=== PATIENT | female | born 1930 | race Caucasian/White ===

== ENCOUNTER 2016-07-12 11:14 | Inpatient (IN) | payer OTHER, MEDICAID ==
[~2016-07-12] VITALS: Ht 157.5 cm; Wt 55.4 kg
--- NOTE | 2016-07-12 11:52 | NUR ---
PT WHEELCHAIRED TO LOBBY BY FAMILY. PT A&O, BREATHING E/U. PT AWAITING ROOM
--- NOTE | 2016-07-12 12:41 | NUR ---
MSE COMPLETED BY DR. SARAVIA
--- NOTE | 2016-07-12 12:45 | NUR ---
PT MOVED FROM HALLWAY 1 TO BED 12
--- NOTE | 2016-07-12 12:50 | NUR ---
EKG IN PROGRESS AND LAB AT BEDSIDE FOR BLOOD DRAW
--- NOTE | 2016-07-12 12:57 | NUR ---
PT BIB FAMILY MEMBER FOR C/O RIGHT HIP PAIN AND RIGHT HAND PAIN S/P MECHANICAL TRIP AND FALL TO RIGHT SIDE FROM TRIPPLING ON [place] APPROX 1030 THIS AM, PT AND PTS FAMILY MEMBER DENIES LOC AFTER FALL, PT REPORTS 10/10 PAIN WHEN MOVING RIGHT LEG, +SHORTENING NOTED, +PSC TO EXT BUT DECREASED MOVEMENT TO RIGHT LEG, PT ABLE TO MOVE RIGHT FOOT WITH NO PROBLEMS, PT AAOX4, NO NEURO DEFICITS, TAMAZIGHT SPEAKING, RESP EVEN AND UNLABORED, IN NO ACUTE DISTRESS, CALL LIGHT WITHIN REACH, WILL CONTINUE TO MONITOR
[2016-07-12 13:12] LABS: CALCIUM 8.6 mg/dL (8.5-10.1); CARBON DIOXIDE 27.6 mmol/L (21-32); CHLORIDE SERUM 98 mmol/L (98-107); CREATININE SERUM 0.5 mg/dL (0.6-1.0); GLUCOSE SERUM 141 mg/dL (74-106); POTASSIUM SERUM 4.1 mmol/L (3.5-5.1); SODIUM SERUM 134 mmol/L (136-145)
[2016-07-12 13:14] LABS: PLATELET COUNT 212 x10^3mcL (130-400); RED CELL DISTRIBUTION WIDTH 14.2 % (11.5-14.5)
[2016-07-12 13:20] LABS: BASOPHIL % 0 % (0-2)
--- NOTE | 2016-07-12 13:20 | NUR ---
PT REPORTS SHE WANTS TO WAIT UNTIL SHE NEEDS TO MOVE AROUND IN THE GURNEY TO RECEIVE IV PAIN MEDICATIONS. PT DENIES HAVING PAIN AT THIS TIME STATING SHE HAS NO PAIN WHEN SHE IS STAYING STILL
--- NOTE | 2016-07-12 13:36 | NUR ---
PT AND FAMILY EDUCATED ON THE NEED FOR HIP SX FOR FRACTURED HIP. PT AND FAM AWARE OF POSSIBLE COMPLICATIONS POST SX.
--- NOTE | 2016-07-12 13:56 | NUR ---
PT RESTING IN BED, NO SIGNS OF DISTRESS PT DECLINES PAIN AT THIS TIME
[2016-07-12] MEDS ORDERED: CALCIUM500 M1 PO (14:04)
[2016-07-12] MEDS ORDERED: MULTI-VIT WITH50 ML PO (14:04)
--- NOTE | 2016-07-12 14:12 | NUR ---
[facility] SWAB COLLECTED AND SENT TO LAB, MED REC COMPLETED
--- NOTE | 2016-07-12 14:32 | NUR ---
REPORT GIVEN TO DIXIE JREONIMO TELE FLOOR TO ASSUME CARE OF PT
--- NOTE | 2016-07-12 14:37 | NUR ---
PT CHANGED TO HOSPITAL GOWN WITH NO PROBLEMS, OFFERED PT ONCE AGAIN IF SHE WOULD LIKE ANYTHING FOR PAIN HERE BEFORE TRANSPORT WITH INSTRUCTION THAT THERE WILL BE BRIEF DISCOMFORT UPON TRANSPORTATION FROM ED GURNEY TO TELE FLOOR BED, PT STILL REFUSING TO TAKE ANYTHING FOR PAIN AT THIS TIME
[2016-07-12 14:49] LABS: ALBUMIN 3.7 g/dL (3.4-5.0); BILIRUBIN DIRECT 0.16 mg/dL (0.0-0.2); BILIRUBIN TOTAL 0.5 mg/dL (0.20-1.00); TOTAL PROTEIN, SERUM 7.3 g/dL (6.4-8.2)
[2016-07-12 14:50] LABS: CHOLESTEROL/HDL RATIO 2.4
[2016-07-12 14:56] LABS: T3 TOTAL 1.45 ng/mL
[2016-07-12 15:00] LABS: FREE T4 1.12 ng/dL (0.76-1.46); FREE THYROXINE INDEX 3.3 ug/dL (1.4-4.5); T4(THYROXINE) 10.2 ug/dL (4.7-13.3)
--- NOTE | 2016-07-12 15:00 | NUR ---
PT ON THE FLOOR, PT ORIENTED TO ROOM, CALL LIGHT IN REACH, FAMILY AT BEDSIDE. TELE 3 NSR.
--- NOTE | 2016-07-12 15:36 | NUR ---
PT RESTINGING IN BED NO C/O PAIN
[2016-07-12 15:55] VITALS: BP 142/52
--- NOTE | 2016-07-12 16:45 | NUR ---
PT RESTING IN BED NO C/O PAIN, FAMILY AT BEDSIDE. CALL LIGHT IN REACH.
--- NOTE | 2016-07-12 17:27 | NUR ---
PT RESTING IN BED NO SIGNS OF DISTRESS CALL LIGHT IN REACH WILL CONTINUE TO MONITOR.
[2016-07-12 18:10] VITALS: BP 138/61
--- NOTE | 2016-07-12 18:42 | NUR ---
DR BURNETT IN TO SEE PT.
--- NOTE | 2016-07-12 19:35 | NUR ---
RECEIVED Pt AAOX4 CALM AND COOPERATIVE WITH CARE. DENIES ANY CHEST PAIN. LUNG SOUNDS ARE CTA BILATERALLY. Pt IS ON ROOM AIR, NO RESP DISTRESS NOTED. ACTIVE BOWEL SOUNDS X4 QUADS, DENIES ANY N/V/D. GAO CATH IN PLACE. DRAINING YELLOW URINE TO GRAVITY. IV SITE TO RFA IS PATENT. SKIN IS INTACT. RIGHT HIP WITH BUCKS TRACTION IN PLACE. REPORTS MILD ACHING PAIN TO RIGHT HIP AT 3/10 WHICH WORSENS WITH MOVEMENT. RADIAL AND PEDAL PULSES ARE PRESENT. NO EDEMA NOTED . Pt AWARE OF SCHEDULE SURGERY, SIGNED CONSENT. AWARE AND UNDERSTANDS THE REASON WHY SHE MUST REMAIN NPO AFTER MIDNIGHT. NEPHEW (KAN AND BI) PRESENT AND AWARE OF POC. VERIFIED WITH PATIENT AND NEPHEW (KAN) THAT THE PATIENT MAKES HER OWN DECISIONS IN REGARDS TO HER CARE, Pt AGREES. FAMILY MEMBER, BI WILL STAY AT BEDSIDE. Pt AND FAMILY RE-ORIENTED TO ROOM AND POC. CALL LIGHT WITHIN REACH. WILL CONTINUE TO MONITOR.
[2016-07-12 21:29] VITALS: BP 133/59
--- NOTE | 2016-07-12 22:08 | NUR ---
MEDICATED WITH NORCO FOR RIGHT HIP PAIN AT 5/10. WILL CONTINUE TO MONITOR.
--- NOTE | 2016-07-12 23:31 | NUR ---
I HAVE REVIEWED THE DATA COLLECTION BY PANDA (NAME):ARON CAMPBELL ENTERED ON (DATE/TIME):07/12/16 7406 I CONCUR WITH THE DATA AND ANY EXCEPTIONS OR COMMENTS ARE LISTED BELOW:
--- NOTE | 2016-07-13 01:26 | NUR ---
AWARE OF THE NEED TO REMOVE BUCKS TRACTION, TRAPEZE AND Pt TO BE TRANSFERRED TO FROM BED TO CT SCANNER FOR CT OF HEAD ORDERED. CT SCAN WILL BE CANCELED AT THIS TIME. LIONEL IN CT DEPT AWARE.
--- NOTE | 2016-07-13 03:17 | NUR ---
Pt RESTING COMFORTABLY. CALL LIGHT WITHIN REACH. WILL CONTINUE TO MONITOR.
[2016-07-13 03:43] LABS: UA SPECIFIC GRAVITY 1.025 (1.005-1.035); microscopic required? YES; urine erythrocyte 1+ (NEGATIVE)
--- NOTE | 2016-07-13 05:17 | NUR ---
NO SIGNIFICANT CHANGES NOTED OVER NIGHT. Pt MEDICATED X1 TIME FOR PAIN TO RIGHT HIP WITH NORCO AND RESTORIL FOR INSOMNIA. GAO CATH WITH 450 ML OF YELLOW URINE. Pt REMAINS NPO. IV SITE PATENT. FAMILY AT BEDSIDE. SAFETY AND COMFORT MEASURES REMAIN IN PLACE. WILL CONTINUE TO MONITOR.
[2016-07-13 06:20] VITALS: BP 119/40
[2016-07-13 06:38] LABS: BASOPHIL % 0.3 % (0-2); PLATELET COUNT 166 x10^3mcL (130-400); RED CELL DISTRIBUTION WIDTH 13.9 % (11.5-14.5)
[2016-07-13 06:56] LABS: CALCIUM 7.7 mg/dL (8.5-10.1); CARBON DIOXIDE 26.4 mmol/L (21-32); CHLORIDE SERUM 105 mmol/L (98-107); CREATININE SERUM 0.4 mg/dL (0.6-1.0); GLUCOSE SERUM 86 mg/dL (74-106); MAGNESIUM 1.9 mg/dL (1.8-2.4); PHOSPHOROUS 2.9 mg/dL (2.5-4.9); POTASSIUM SERUM 3.8 mmol/L (3.5-5.1); SODIUM SERUM 136 mmol/L (136-145)
--- NOTE | 2016-07-13 08:04 | NUR ---
cancellation requested for echocardiogram
--- NOTE | 2016-07-13 09:22 | NUR ---
PT RESTING IN BED, AWAKE ALERT AND ORIENTED X4, ABLE TO MAKE NEEDS KNOWN. TELE 3. GREENLANDIC SPEAKING. PULSES EQUAL BILATERAL NO EDEMA NOTED. PT ABLE TO WIGGLE BILATERAL TOES. NO C/O PAIN AT THIS TIME. PT RESTING COMFORTABLE ON RA. BOWEL TONES ACTIVE. GAO CATHETER INPLACE. BUCKS TRACTION TO RIGHT LEG 7LBS. SKIN IS CDI. IV TO THE RFA. PT CALM AND COOPERATIVE WITH CARE.
--- NOTE | 2016-07-13 11:08 | NUR ---
PT RESTING IN BED, FAMILY AT BEDSIDE. PT DENIES PAIN AT THIS TIME. CALL LIGHT IN REACH WILL CONTINUE TO MONITOR.
--- NOTE | 2016-07-13 12:15 | NUR ---
PT OFF THE FLOOR IN PROCEDURE, PTS FAMILY MEMEBERS ACCOMPANIED PT DOWN TO OR. PTS AGNES TOOK DENTURES WITH HER TO OR WAITING ROOM.
--- NOTE | 2016-07-13 15:30 | NUR ---
REPORT RECIEVED FROM GUILLERMINA FROM OR.
--- NOTE | 2016-07-13 17:46 | NUR ---
PT RESTIGN IN BED NO SIGNS OF DISTRESS, CALL LIGHT IN REACH, NO C/O PAIN AT THIS TIME, REPOSITIONED PT FOR COMFORT. FAMILY AT BEDSIDE WILL CONTINUE TO MONITOR.
--- NOTE | 2016-07-13 19:40 | NUR ---
RECEIVED Pt AAOX3 CALM AND COOPERATIVE WITH CARE. DENIES ANY CHEST PAIN. LUNG SOUNDS ARE CTA BILATERALLY. Pt IS ON ROOM AIR. NO RESP DISTRESS NOTED. ACTIVE BOWEL SOUNDS X4 QUADS. DENIES ANY ABD PAIN, N/V/D. IV SITE TO RFA IS PATENT. GAO CATH IN PLACE WITH YELLOW URINE. DRESSING TO RIGHT HIP IN PLACE CDI. DENIES ANY PAIN AT THIS TIME. RADIAL AND PEDAL PULSES ARE PRESENT. NO EDEMA NOTED TO EXTREMITITIES. SCD'S IN PLACE. RE-ORIENTED TO ROOM AND CALL LIGHT SYSTEM WITHIN EASY REACH. WILL CONTINUE TO MONITOR.
--- NOTE | 2016-07-13 20:00 | NUR ---
I HAVE REVIEWED THE DATA COLLECTION BY PANDA (NAME):ARON CAMPBELL ENTERED ON (DATE/TIME):07/13/161939 I CONCUR WITH THE DATA AND ANY EXCEPTIONS OR COMMENTS ARE LISTED BELOW:
[2016-07-13 21:34] VITALS: BP 100/43
--- NOTE | 2016-07-13 23:13 | NUR ---
Pt DENIES ANY PAIN AT THIS TIME. CALL LIGHT WITHIN REACH. WILL CONTINUE TO MONITOR.
--- NOTE | 2016-07-14 04:13 | NUR ---
Pt RESTING COMFORTABLY. NO S/S PAIN NOTED. WILL CONTINUE TO MONITOR.
--- NOTE | 2016-07-14 05:07 | NUR ---
NO SIGNIFICANT CHANGES NOTED OVER NIGHT. NO C/O PAIN TO RIGHT HIP REPORTED. PEDAL PULSES AND CAP REFILLS ARE PRESENT TO BLE, DENIES ANY NUMBNESS OR TINGLING. GAO CATH WITH 250 ML OF ERICA URINE NOTED. NO BM NOTED. IV SITE REMAINS PATENT. SAFETY AND COMFORT MEASURES REMAIN IN PLACE. WILL CONTINUE TO MONITOR.
[2016-07-14 05:40] VITALS: BP 101/40
[2016-07-14 05:48] LABS: BASOPHIL % 0.2 % (0-2); PLATELET COUNT 134 x10^3mcL (130-400)
[2016-07-14 05:49] LABS: CALCIUM 7.6 mg/dL (8.5-10.1); CARBON DIOXIDE 26.2 mmol/L (21-32); CHLORIDE SERUM 105 mmol/L (98-107); CREATININE SERUM 0.4 mg/dL (0.6-1.0); GLUCOSE SERUM 118 mg/dL (74-106); MAGNESIUM 1.8 mg/dL (1.8-2.4); PHOSPHOROUS 2.5 mg/dL (2.5-4.9); POTASSIUM SERUM 4.4 mmol/L (3.5-5.1); SODIUM SERUM 137 mmol/L (136-145)
--- NOTE | 2016-07-14 08:30 | NUR ---
PATIENT ALERT AND ORIENTED X4, BREATHING UNLABORED, NO SIGNS OF DISTRESS. PT LYING IN BED WATCHING TV VS WNL. NO COMPLAINTS OF PAIN AT THIS TIME, WILL CONTINUE TO MONITOR.
[2016-07-14 10:56] VITALS: BP 109/43
--- NOTE | 2016-07-14 11:29 | NUR ---
PAIN MEDICATION WAS GIVEN AND PT WITH PATIENT. NO SIGNS OF DISTRESS BREATHING UNLABORED.
--- NOTE | 2016-07-14 14:06 | NUR ---
PATIENT LYING IN BED, NO COMPLAINTS OF PAIN. BREATHIJNG UNLABORED, NO SIGNS OF DISTRESS. WILL CONTINUE TO MONITOR.
--- NOTE | 2016-07-14 14:09 | NUR ---
PATIENT SITTING IN BED NO COMPLAINTS OF PAIN AT THIS TIME, WILL CONTINUE TO MONITOR.
--- NOTE | 2016-07-14 14:48 | NUR ---
P.T. NOTES AM/INITIAL EVAL [id number] Pt WAS ADMITTED DUE TO FALL AT HOME, (R)ANGULATED IT HIP FX, 07/13/16 (R)HIP ORIF; 07/13/16 CT HEAD(-), XR (R)WRIST:POSSIBLE MID SCAPHOID FX; Pt LIVES IN 1-DOMINICK HOUSE W/ NEPHEW (WORKS DAYTIME) & IHZBG-LD-PUF (WORKS NIGHT TIME), HAS 1 STEP TO FRONT ENTRY; AMBULATORY WITHOUT ASST DEVICE; DOES NOT DRIVE, HOMEMAKER, NO CHILDREN. S: Pt WAS SEEN AWAKE & ALERT IN BED, SPEAKS MALAY, ABLE TO FOLLOW SIMPLE COMMANDS W/ TACTILE & GESTURE CUES, CYRACOM PHONE AVAILABLE, PREFERS NIECE (BI) TO TRANSLATE AT THIS TIME; NIECE IN ROOM; ORIENTED x3, AGREEABLE & COOPERATIVE W/ P.T.; DEMO (R)HIP PAIN (P.S.9/10)(HARRINGTON HAYES PAIN SCALE), PRE MEDICATED, NO C/O DIZZINESS AT THIS TIME;APPREHENSIVE. O:BED MOBILITY: MAX ASSIST+2 PERSONS IN SUPINE TO SIT TRANSFERS: MAX/MOD ASSIST+2 PERSONS IN SIT TO STAND W/ FWW, CHAIR TRANSFERS GAIT: MOD ASSIST+2 PERSONS W/ FWW X 12 FT, (R)LE FWB UNABLE TO AMBU FARTHER DUE TO WEAKNESS, PAIN, FATIGUE; AGREED TO SIT UP IN RECL CHAIR AT BEDSIDE; ON ROOM AIR; CALL HARRIS, PHONE TABLE IN REACH; APPRECIATIVE; NURSE AWARE; NIECE IN ROOM. A:Pt DEMO GOOD RESPONSE TO P.T. SESSION; FALL RISK, POST OP; SLOW IN TASK FACILITATION; Pt EDUC ON SAFE GAIT, WB, HEP, USE OF CALL LIGHT FOR NURSE ASSIST, DEMO UNDERSTANDING, GOOD FOLLOW THRU; ANTALGIC GAIT; TENDS TO HOP W/ (L)LE DUE TO PAIN; JN=083/47, 123/37; HR=77, 80; O2 SAT ROOM AIR=98% P:CONT PT TWICE DAILY 5X/WK, ONCE DAILY 1X/WK X 1 WK; POC & DX DISCUSSED W/ COMMERCIAL TITLE EXAMINER; WILL BENEFIT W/ P.T. AFTER ACUTE STAY. EVAL38,2PA GCODES:[id number] TUG SCORE:19 sec [id number] Pt WAS GIVEN THERA EXER UE/LE ELLIS. EX8
--- NOTE | 2016-07-14 14:53 | NUR ---
PT NOTES TIME [id number] S: CLEARED BY RN FOR P.T. TX. PATIENT IS AWAKE & ALERT SITTING UP IN A RECLINER CHAIR BY BEDSIDE. AGREEABLE TO P.T. TX. C/O PAIN ON R HIP 07/07. RN AWARE. O: VS AT REST BP 111/31, HR 82 BPM, SPO2 ON RA 100% BED MOBILITY: SIT>SUPINE W/ MAX ASSIST OF 2. TRANSFER: SIT<>STAND W/ MAX/MOD ASSIST OF 2. GAIT: 2 STEPS W/ FWW MOD/MAX ASSIST OF 2. R LE FWB. PATIENT PREFERS NWB ON R LE DURING GAIT DUE TO PAIN. PATIENT HAS ANTALGIC STANCE. DECREASE GAIT VELOCITY. GAIT DISTANCE LIMITED D/T R HIP PAIN & WEAKNESS. EDUCATED PATIENT ON THE IMPORTANCE OF THERAPY, R LE FWB, & SAFETY FOR FALL PREVENTION W/ G UNDERSTANDING. COOPERATIVE & APPRECIATIVE OF CARE. THER EX KNEE FLEX/EXT, HIP FLEXION, GLUTEAL SETS, ANKLE DF/PF ELLIS. PATIENT IS SAFELY & COMFORTABLY IN A SEMI US POSITION IN BED W/ CALL BUTTON & TABLE IN REACH. BED ALARM ON. VS AFTER TX BP 106/59, HR 77 BPM, SPO2 ON RA 100%. RN NOTIFIED. P: DISCUSSED W/ PRIMARY PHYSICAL THERAPIST TA17',TE8',2PA(2)
--- NOTE | 2016-07-14 15:10 | NUR ---
CALLED DR HARRINGTON TOP NOTIFY OG LOW BP 98/37 MAP 56 AND HGB 8.1 AND HCT 25. PATIENT FEELING WEAK AND SLEEPY. PER DOCTOR LEN TO GIVE BOLUS AND RECHECK BP ON RIGHT ARM. WILL UPDATE WITH NEW BP.
--- NOTE | 2016-07-14 15:15 | NUR ---
SPOKE WITH DR HARRINGTON. WAS GIVEN ORDERS TO CHARISSE PT AND SAID HE WILL ORDER CBC IN 4 HOURS. INFORMED OF BP OF 101/43 MAP 63.
--- NOTE | 2016-07-14 16:20 | NUR ---
DR BUI IN TO ASSESS PATIENT AT THIS TIME. DR BUI MADE AWARE OF HGB 8.1, INFORMED HIM OF DR HARRINGTON'S ORDER TO HEP LOCK PATIENT AND ORDER CBC AT 1900. NO NEW ORDERS AT THIS TIME. DRESSING TO RIGHT HIM STILL INTACT WITH NO STRIKE THROUGH NOTED. INFORMED DR BUI PATIENT WAS UNABLE TO AMBULATE WITH PHYSICAL THERAPY DUE TO LOW BP. WILL CONTINUE TO MONITOR.
[2016-07-14 17:41] VITALS: BP 103/55
--- NOTE | 2016-07-14 17:50 | NUR ---
DISCONTINUED IV ON RIGHT AC DUE TO INFILTRATION. STARTED IV ON LEFT AC 20GADGE. PATIENT TOLERATED WELL.
--- NOTE | 2016-07-14 18:10 | NUR ---
DISCONTINUED RIGHT FOREARM IV RELATYED TO BEING IN THE WAY OF THE WRIST SPLINT. PLACED 20GADGE TO LEFT FOREARM, ONE ATTEMOP, PATIENT TOLERATED WELL. DISCONTINUED GAO CATHETER, PATIENT TOLERATED PROCEDURE WELL. BREATHING UNLABORED AND NO SIGNS OF DISTRESS. WILL CONTINUE TO MONITOR.
--- NOTE | 2016-07-14 19:56 | NUR ---
RECEIVED PATIENT NAHEED BED AWAKE, ALERT AND ORIENTED GREEN[place] SPEAKING WITH NO C/O PAIN AND DISCOMFORT THIS TIME, BREATHINGEASY AND NON LABOR. PT ON HEPARIN 5000 UNITS SQ. DRESSING TO RT HIP CDI. IV TO LAF ON HEPLOCK. WILL CONTINUE TO MONITOR. CALL LIGHT WITHIN REACH.
--- NOTE | 2016-07-14 20:33 | NUR ---
CRITICAL RESULT H/H- 6.10/18, DR GAINES MADE AWARE, WAITING FOR NEW ORDERS.
[2016-07-14 21:03] VITALS: BP 118/44
--- NOTE | 2016-07-14 22:43 | NUR ---
C/O POST OP PAIN ,PATIENT REQUESTED TYLENOL, GIVEN PRESCRIBED. WILL CONTINUE TO MONITOR.
[2016-07-15] VITALS (7 sets, daily range): BP systolic 106–124; BP diastolic 41–57
--- NOTE | 2016-07-15 00:43 | NUR ---
SLEEPING THIS TIME AFTER PAIN MEDS WAS GIVEN. WILL CONTINUE TO MONITOR.
--- NOTE | 2016-07-15 05:15 | NUR ---
SLEPT FAIRLY NO C/O DISCOMFORT NOTED THROUGHOUT THE SHIFT. CHECKED AT INTERVALS FOR NEEDS AND SAFETY.
[2016-07-15 06:39] LABS: BASOPHIL % 1.3 % (0-2); PLATELET COUNT 135 x10^3mcL (130-400); RED CELL DISTRIBUTION WIDTH 12.9 % (11.5-14.5)
--- NOTE | 2016-07-15 07:13 | NUR ---
PAGE SENT TO DR HARRINGTON AT THIS TIME REGARDING HGB 7.0, HCT 20. PATRICIA CONTINUE TO MONITOR.
--- NOTE | 2016-07-15 07:45 | NUR ---
PATIENT AWAKE, ALERT, NO SIGNS OF DISTRESS NOTED, NIECE AT BEDSIDE. DENIES CHEST PAIN, ON ROOM AIR. TRAPEZE BAR IN PLACE FOR SAFETY, DRESSING TO RIGHT HIP CDI. LOW AIR MATTRESS IN PLACE, IV TO LFA SALINE LOCKED AND WNL. SCD'S IN PLACE, SPLINT TO RIGHT WRIST IN PLACE. ALL SAFETY MEASURES IN PLACE, WILL CONTIINUE TO MONITOR.
--- NOTE | 2016-07-15 09:18 | NUR ---
BLOOD TRANSFUSION STARTED AT THIS TIME. PATIENT AWAKE, ALERT, NO SIGNS OF DISTRESS NOTED, NIECE AT BEDSIDE. T99.4, HR 87, BP 112/51, RR 18, SPO2 97% ON ROOM AIR. WILL REMAIN AT BEDSIDE AND CONTINUE TO MONITOR.
--- NOTE | 2016-07-15 11:18 | NUR ---
DR HARRINGTON IN TO ASSESS PATIENT AT THIS TIME. PATIENT AWAKE, ALERT, NO SIGNS OF DISTRESS NOTED, NIECE AT BEDSIDE. ALL QUESTIONS AND CONCERNS ADDRESSED. ALL SAFETY MEASURES IN PLACE, WILL CONTINUE TO MONITOR.
--- NOTE | 2016-07-15 12:40 | NUR ---
BLOOD TRANSFUSION FINISHED AT THIS TIME. PATIENT AWAKE, ALERT, NO SIGNS OF DISTRESS NOTED, FAMILY AT BEDSIDE. BP 117/57, HR 75, T 98.7, RR 18 SPO2 98% ON ROOM AIR. NO SIGNS OF ADVERSE REACTIONS NOTED, ALL SAFETY MEASURES IN PLACE, WILL CONTINUE TO MONITOR.
--- NOTE | 2016-07-15 13:50 | NUR ---
PATIENT UP TO CHAIR BY PHYSICAL THERAPY AT THIS TIME. PATIENT WAS ABLE TO TOLERATE AMBULATING IN ROOM WITH AUBREY RAND AT BEDSIDE. CALL LIGHT WITHIN REACH, WILL CONTINUE TO MONITOR.
--- NOTE | 2016-07-15 15:54 | NUR ---
PT NOTES TIME 1168-0846 S: CLEARED BY RN FOR P.T. TX. FIRST ATTEMPT IN THE A.M., PATIENT IS HAVING A BLOOD TRANSFUSION PER RN (PVE). PATIENT IS AWAKE & ALERT IN A SEMI US POSITION IN BED. AGREEABLE TO P.T. TX. C/O R HIP PAIN & R WRIST PAIN 07/07. O: VS AT REST BP 119/51, HR 80 BPM, SPO2 ON RA 99% BED MOBILITY: SUPINE>SIT W/ MIN ASSIST. TRANSFER: SIT<>STAND W/ FWW MIN ASSIST. VC GIVEN W/ PROPER SEQUENCE FOR SIT<>STAND TRANSFER W/ HAND/FEET PLACEMENT. GAIT: 5FT W/ FWW MIN ASSIST. PATIENT HAS ANTALGIC GAIT/STANCE. SHORT STEP/STRIDE LENGTHS. DECREASE GAIT VELOCITY. EASILY FATIGUE. GAIT DISTANCE LIMITED D/T PAIN, FATIGUE, & WEAKNESS. R LE FWB. PATIENT EDUCATED ON R LE FWB STATUS, SAFETY FOR FALL PREVENTION, GAIT SEQUENCE W/ G UNDERSTRANDING. COOPERATIVE & APPRECIATIVE OF CARE. THER EX ANKLE DF/PF, KNEE FLEX/EXT, HIP FLEXION ELLIS. PATIENT IS SAFELY & COMFORTABLY IN A SEMI US POSITION IN BED. PATIENT IS SAFELY & COMFORTABLY IN A SEMI US POSITION IN BED W/ CALL BUTTON & TABLE IN REACH. RN NOTIFIED. P: DISCUSSED W/ PRIMARY PHYSICAL THERAPIST GT10',TA15',TE13',PVE((2) ADDITIONAL STAFF SBA FOR SAFETY)
--- NOTE | 2016-07-15 16:08 | NUR ---
PT NOTES P.M. TIME 0699-5646 S: CLEARED BY RN FOR P.T. TX. PATIENT IS AWAKE & ALERT SITTING UP IN A RECLINER CHAIR. AGREEABLE TO P.T. TX. STILL C/O R HIP/R WRIST PAIN 07/07. RN IS AWARE. O: BED MOBILITY: SIT>SUPINE W/ MIN ASSIST. TRANSFER: SIT<>STAND W/ FWW MIN ASSIST. STILL CONTINUES TO REQUIRE VC W/ PROPER HAND/FEET PLACEMENT FOR A SAFE SIT>STAND TRANSFER. GAIT: 15FT W/ FWW MIN ASSIST. R LE FWB. PATIENT GAIT STILL CONTINUES TO BE LIMITED D/T R HIP/WRIST PAIN. DECREASE GAIT VELOCITY. PATIENT DON R WRIST BRACE. ANTALGIC GAIT/STANCE W/ A DECREASE STANCE PHASE ON R LE. PATIENT STILL REQUIRES VC FOR PROPER GAIT SEQUENCE W/ FWW. EDUCATED PATIENT ON SAFETY FOR FALL PREVENTION & HEP FOR STRENGTHENING W/ G UNDERSTANDING. COOPERATIVE & APPRECIATIVE OF CARE. INSTRUCTED IN THER EX FOR BILAT LE. PATIENT VERBLAIZED UNDERSTANDING. PATIENT IS SAFELY & COMFORTABLY IN A SEMI US POSITION IN BED W/ CALL BUTTON & TABLE IN REACH. LEFT IN CARE OF FAMILY. AIR MATTRESS ON. BED ALARM ON. RN NOTIFIED. P: DISCUSSED W/ PRIMARY PHYSICAL THERAPIST GT15',TA10',PVE((2) ADDITIONAL STAFF SBA FOR SAFETY)
--- NOTE | 2016-07-15 19:57 | NUR ---
RECEIVED PATIENT IN BED AWAKE WITH NO INDICATION OF POST OP PAIN THIS TIME. FAMILTY MEMBERS AT BEDSIDE. CLEAR BS TO AUSCULTATION SATTING AT 98% RA. DRESSING TO RT HIP CDI WITH NO BLOOD TRACE NOTED. IV TO LFA ON HEPLOCK FLUSHED WITH NS. WILL CONTINUE TO MONITOR. CALL LIGHT WITHIN REACH.
--- NOTE | 2016-07-16 01:38 | NUR ---
SLEEPING THIS TIME NO INDICATION OF PAIN AND DSICOMFORT NOTED. NIECE AT BEDSIDE.
--- NOTE | 2016-07-16 05:13 | NUR ---
SLEPT AT LONG INTERVALS, DENIES POST OP PAIN THE ENTIRE SHIFT. CHECKED AT INTERVALS FOR NEEDS AND SAFETY. ALL NEEDS ATTENDED.
--- NOTE | 2016-07-16 06:11 | NUR ---
C/O POST OP PAIN AT SCALE OF 8/10 MEDICATED WITH NORCO 1 TAB PO PRESCRIBED.
[2016-07-16 06:24] VITALS: BP 122/53
[2016-07-16 06:26] LABS: BASOPHIL % 0.2 % (0-2); PLATELET COUNT 167 x10^3mcL (130-400)
[2016-07-16 07:18] LABS: RED CELL DISTRIBUTION WIDTH 15.5 % (11.5-14.5)
--- NOTE | 2016-07-16 08:00 | NUR ---
RECEIVED PATIENT AAOX4 SITTING UP IN BED, FAMILY MEMBER AT BEDSIDE, PATIENT ABLE TO COMMUNICATE AND FOLLOW COMMANDS, NO DISTRESS NOTED, AND DENIES CHEST PAIN. PALPABLE PULSES TO BUE/BLE AND SCDS IN PLACE. ON ROOM AIR, DENIES SOB, AND RESPIRAITONS EVEN AND UNLABORED. DENIES N/V/D. VOIDS FREELY USING BEDPAN. S/P ORIF TO RIGHT HIP 07/13/16 WITH DRESSING TO RIGHT HIP CDI, WITH FULL ROM TO LEFT LOWER LEG AND PASSIVE ROM TO RIGHT LOWER LEG, DENIES PAIN, AND DENIES NUMBNESS AND TINGLING TO RIGHT LOWER LEG. SALINE LOCK TO LFA CDI. BED TO LOWEST POSITION, SIDE RAILS UP X2, INSTURCTED TO USE CALL LIGHT FOR ASSISTANCE, AND ALSO WILL BE ASSESSING PAIN AND TO ALSO MAKE ME AWARE IF SHE HAD ANY PAIN, AND WILL CONTINUE TO MONITOR.
--- NOTE | 2016-07-16 11:00 | NUR ---
AT BEDSIDE, ASSESSING PATIENT AND FAMILY MEMEBER AT BEDSIDE, FAMILY MEMEBER SAID THEY ARE STILL DECIDING IF THEY WANT TO SEND PATIENT TO [facility] OR COME HOME WITH THEM AND HAVE PHYSICAL THERAPIST COME TO HOME, SAID TO LET US KNOW SOON THEY DECIDE, ALL QUESTIONS AND CONCERNS ADDRESSED, ALSO AWARE PATIENT HAS NOT HAVE A BM FOR 5 DAYS ACCORDING PATIENT, SAID HE WILL ORDER LAXATIVE, AWAITING ORDERS AND WILL CONTINUE TO MONITOR.
[2016-07-16 11:05] VITALS: BP 127/69
--- NOTE | 2016-07-16 12:37 | NUR ---
AT BEDSIDE TALKING TO FAMILY MEMBER AT BEDSIDE, SAID PATIENT WILL HAVE TO BE DISCHARGED TODAY BUT IF THEY WOULD LIKE TO STAY ANOTHER DAY DUE TO INSURANCE REASONS FAMILY WOULD HAVE TO PAY MEDICAL EXPENSES, ALL QUESTIONS AND CONCERNS ADDRESSED, CALL LIGHT WITHIN REACH, PATIENT VERBALIZED UNDERSTANDING AND WILL CONTINUE TO MONITOR.
--- NOTE | 2016-07-16 12:45 | NUR ---
AT BEDSIDE TALKING TO FAMILY MEMBER AT BEDSIDE, SAID HE SPOKE TO THE PATIENTS NEPHEW AND HE AGREED TO [facility] [facility], AND HE WILL WORK WITH CASE MANAGMENT FOR PLACEMENT AND WILL NOTIFY THEM ABOUT WHAT TIME TRANSPORTATION WILL BE AVAILABLE, ALL QUESTIONS AND CONCERNS ADDRESSED, CALL LIGHT AND BELONGINGS WITHIN REACH, AND WILL CONTINUE TO MONITOR.
[2016-07-16] MEDS ORDERED: METHOCARBAMOL500 MG PO (13:12)
[2016-07-16] MEDS ORDERED: FERL PO (13:12)
[2016-07-16] MEDS ORDERED: TYL325 PO (13:13)
[2016-07-16] MEDS ORDERED: HEP5I SC (13:13)
[2016-07-16] MEDS ORDERED: APAP/HYDROCODON1 T13 PO (13:13)
[2016-07-16] MEDS ORDERED: COL100 PO (13:15)
[2016-07-16 14:07] VITALS: BP 141/58
--- NOTE | 2016-07-16 14:57 | NUR ---
PT NOTES AM+PM TIME: 4066-5730 TE10',TA15',GT13',PVE((1)SAFETY STANDBY) S:CHART REVIEWED AND CLEARED FOR PT BY RN. PATIENT IN SEMIFOWLER POSITION WITH NIECE AT BEDSIDE. PATIENT DENIES PAIN AT REST, BUT 6/10 ON R HIP BASED ON HARRINGTON HAYES SCALE UPON MOVEMENT (PREMEDICATED). PATIENT AGREEABLE TO PARTICIPATE IN THERAPY. O:BED: MOD/MIN SUPINE<->SIT WITH VC'S FOR PACING AND PROPER SEQUENCING TO COMPLETE TRANSFER. REMINDERS TO AVOID PERFORMING VALSALVA MANEUVER DURING TRANSFERS. NO DIZZINESS EXPRESSED, BUT PAIN LEVEL DID INCREASE SLIGHTLY UPON SITTING AT EOB. TRANSFER: MIN/CGA FWW SIT<->STAND, NO DIZZINESS EXPRESSED, BUT FEW REMINDERS ON POSTURAL AWARENESS AND WB STATUS. GAIT: CGA FWW 28'x1 WITH OCCASIONAL REMINDERS TO MAINTAIN SAFE PROXIMITY TO FWW, TO MAINTAIN SHORTER STEP LENGTH AND FOR SEQUENCING WITH FWW. PATIENT AT TIMES MAINTAINS QUICK KALIE. NO LOB PRESENTED, BUT LIMITED D/T FATIGUE OF L UE AND R HIP PAIN EXPRESSED. TE: ANKLE DF/PF, HEEL SLIDES, GLUTEAL SETS, SHOULDER SHRUGS/CIRCLES, SCAPULA RETRACTION/PROTRACTION. (ALL TOLERATED WITH PLB FOR PACING). PATIENT EDUCATED ON HEP, PACING, TRANSFERS, ENERGY CONSERVATION AND POSTURAL AWARENESS WITH GOOD FOLLOW THRU. PATIENT RETURNED SAFELY AND MADE COMFORTABLE IN RECLINER CHAIR WITH ALL LINES INTACT, TRAY AND CALL LIGHT IN REACH. PATIENT AND NIECE COOPERATIVE AND APPRECIATIVE OF PT CARE, RN MADE AWARE. P:CONT WITH POC, PROGRESS DISCUSSED WITH PRIMARY PT. PT NOTES PM TIME: [phone] TE3',TA12',GT8',PVE((1)BR ASSIST) S:CHART REVIEWED AND CLEARED FOR PT BY RN. PATIENT SITTING UP IN RECLINER CHAIR RESTING AND EAGER TO USE RESTROOM AND AGREEABLE TO PARTICIPATE IN THERAPY. NO PAIN OR DISCOMFORT FROM SITTING UP, ONLY FATIGUE WAS EXPRESSED. 5/10 R HIP PAIN WHEN MOVED (PREMEDICATED) O:BED: MIN SIT<->SUPINE WITH BILATERAL LE SUPPORT/GUIDANCE FROM BED, VERBAL CUES PROVIDED FOR PROPER SEQUENCING AND BODY MECHANICS. TRANSFER: MIN SIT<->STAND WITH VC'S FOR PUSH OFF FROM CHAIR/TOILET AND MIN ASSIST TO ADVANCE R LE FROM SITTING/STANDING FROM COMMODE. HEAVY GUIDANCE NEEDED ON TOILET TRANSFER, AT TIMES IS APPREHENSIVE. GAIT: CGA 24'x1 TO RESTROOM FOR SUCCESSFUL BM+URINATION (PVE). PATIENT EXPRESSED FATIGUE AND EAGER TO RETURN BTB. PATIENT NEEDS CONTINUED REMINDERS ON PROPER GAIT SEQUENCING AND MAINTAIN PROPER AND SAFE PROXIMITY TO FWW, TENDS TO BE TOO CLOSE ANTERIORLY TO FWW. OVERALL SLOW AND STEADY KALIE, BUT CONTINUES TO BE LIMITED D/T GENERAL WEAKNESS. TE: ANKLE DF/PF, GLUTEAL SETS, UE ROM TO DECREASE TIGHTNESS (ALL TOLERATED). PATIENT EDUCATED WITH ENERGY CONSERVATION, POSTURAL AWARENESS, GAIT/TRANSFERS, VERBALIZED UNDERSTANDING. PATIENT AND NIECE COOPERATIVE AND APPRECIATIVE OF PT CARE, RN MADE AWARE. TRAY AND CALL LIGHT IN REACH. RN MADE AWARE. P:CONT WITH POC, PROGRESS DISCUSSED WITH PRIMARY PT.
[2016-07-16 16:01] VITALS: BP 141/58
--- NOTE | 2016-07-16 16:31 | NUR ---
PICTURES TAKEN OF SURGICAL WOUND TO RIGHT HIP TOTAL OF 3 SURGICAL WOUNDS, CDI, REPLACED PREVIOUS DRESSING WITH ISLAND WOUND DRESSING X2 USING STERIL TECHNIQUE, FAMILY AT BEDSIDE, CALL LIGHT AND BELONGINGS WITHIN REACH, AND WILL CONTINUE TO MONITOR.
--- NOTE | 2016-07-16 16:45 | NUR ---
DISCHARGE INSTRUCTIONS GIVEN TO KAN EDOUARD AND STANISLAV AT BEDSIDE, ALL QUESTIONS AND CONCERNS ADDRESSED, WILL CONTINUE TO MONITOR.
--- NOTE | 2016-07-16 17:58 | NUR ---
REPORT GIVEN TO AT PANDA FAULKNER AT [facility], ALL QUESTIONS AND CONCERNS ADDRESSED, MADE AWARE GEOLOGICAL TECHNICAL OFFICER TIME WILL BE 1830 BY [employer] AND WILL CONTINUE TO MONITOR.
--- NOTE | 2016-07-16 18:45 | NUR ---
DISCHARGE INSTRUCTIONS GIVEN TO KAN EDOUARD AND STANISLAV AT BEDSIDE, ALL QUESTIONS AND CONCERNS ADDRESSED, WILL CONTINUE TO MONITOR.
--- NOTE | 2016-07-16 19:09 | NUR ---
PATIENT DISCHARGE TO [facility]UNITY EXTENDED CARE VIA GURNEY BY [facility] TRASPORTATION, PATIENT LEFT AAOX4, IN STABLE CONDITION, NO DISTRESS NOTED, RESPIRAITONS EVEN AND UNLABORED, DENIES PAIN, ABD DRESSINGS X2 TO RIGHT HIP CDI, PATIENT TOOK ALL PERSONAL BELONGIGNS, AND DISCHARGE PACKET GIVEN TO TRASPORATION TEAM, IV D/C AND CANNULA INTACT.
== END 2016-07-16 19:09 | DRG 480 ==
LOC: ED 11:14 → DU 13:48 → MU 07-14 08:30
PROVIDERS: Emergency Medicine; Family Medicine; Neuromusculoskeletal Medicine, Sports Medicine; ADMIT Family Medicine
PROC: 0QS604Z Reposition Right Upper Femur with Internal Fixation Device, Open Approach (ICD-10-PCS; principal; 2016-07-13 13:00)
DX: S72.141A Displaced intertrochanteric fracture of right femur, initial encounter for closed fracture (principal); N17.0 Acute kidney failure with tubular necrosis; E87.1 Hypo-osmolality and hyponatremia; R73.03 Prediabetes; M81.0 Age-related osteoporosis without current pathological fracture; M41.9 Scoliosis, unspecified; M47.896 Other spondylosis, lumbar region; I35.1 Nonrheumatic aortic (valve) insufficiency; D64.9 Anemia, unspecified; Z68.22 Body mass index [BMI] 22.0-22.9, adult; W01.0XXA Fall on same level from slipping, tripping and stumbling without subsequent striking against object, initial encounter; Y92.017 Garden or yard in single-family (private) house as the place of occurrence of the external cause
CPT/HCPCS: 83880; 84439; 97110-GP; 97116-GP; 97530-GP; C1713; J0690; J1170; J1644; J2405; J3490; J7030; J7040; P9016; Q0092; Q0163; Q0177